=== PATIENT | male | born 1995 | race Two or more races ===

== ENCOUNTER 2021-03-03 12:46 | Emergency (ER) | payer SELFPAY ==
[~2021-03-03] VITALS: Ht 175.3 cm; Wt 81.0 kg
[2021-03-03] MEDS ORDERED: IV NORMAL SALINE 1000ML BAG 1,000 ML IV ONE (15:45)
[2021-03-03] MEDS ORDERED: fentaNYL PF VIAL 100 MCG/2 ML VIAL IVP ONE (15:45)
[2021-03-03 15:56] LABS: BILIRUBIN,URINE NEGATIVE (NEG); CLARITY,URINE TURBID; COLOR,URINE YELLOW; NITRITE,URINE NEGATIVE (NEG); PROTEIN,URINE NEGATIVE (NEG-TRACE); UROBILINOGEN,URINE 0.2 mg/dL (0.2 mg/dL)
[2021-03-03 16:05] LABS: AMORPHOUS SEDIMENT,UR PRESENT /HPF; BACTERIA,URINE 0 /HPF (0-FEW); RBC,URINE 0 /HPF (0-2); WBC,URINE 0 /HPF (0-4)
[2021-03-03 16:10] LABS: BASO % 1 % (0-3); EOS # 0.2 x10^3/uL (0.0-0.7); EOS % 3 % (0-3); HEMOGLOBIN 15.7 g/dL (13.0-17.5); LYMPH # 3.1 x10^3/uL (1.0-4.8); LYMPH % 41 % (24-48); MEAN CORPUSCULAR HEMOGLOBIN 32 pg (25-35); MEAN CORPUSCULAR HGB CONC 35 g/dL (31-37); MEAN CORPUSCULAR VOLUME 91 fL (79-100); MONO # 0.6 x10^3/uL (0.0-1.1); MONO % 8 % (0-9); NEUT # 3.7 x10^3/uL (1.8-7.7); NEUT % 48 % (31-73); PLATELET COUNT 281 x10^3/uL (140-400); RED BLOOD COUNT 4.95 x10^6/uL (4.30-5.70); RED CELL DISTRIBUTION WIDTH 12.8 % (11.5-14.5); WHITE BLOOD COUNT 7.6 x10^3/uL (4.0-11.0)
[2021-03-03] MEDS ORDERED: fentaNYL PF VIAL 100 MCG/2 ML VIAL ONE (16:10)
[2021-03-03] MEDS ORDERED: IOHEXOL 300 MG/ML 100ML VIAL. IV ONE (16:15)
[2021-03-03] MEDS ORDERED: CONTRAST GIVEN. MC PRN (16:15)
[2021-03-03 16:18] LABS: CALCIUM 8.9 mg/dL (8.5-10.1); CREATININE 0.9 mg/dL (0.7-1.3); GFR 103.7; POTASSIUM 3.7 mmol/L (3.5-5.1)
--- NOTE | 2021-03-03 16:25 | RAD ---
Single view pelvis two-view right hip dated 03/03/2021. No comparison available. Clinical data indication: Pain after fall. FINDINGS: AP view pelvis and single view bilateral hip show normal bony alignment. No displaced fracture. No pe riostitis or bone destruction. Pelvic ring is intact. IMPRESSION: No acute findings. Electronically signed by: Diego Starr MD (03/03/2021 4:23 PM) [facility]
[2021-03-03 16:27] VITALS: BP 128/76
[2021-03-03 16:28] LABS: ALBUMIN/GLOBULIN RATIO 1.3 (1.0-1.7); TOTAL BILIRUBIN 0.2 mg/dL (0.2-1.0); TOTAL PROTEIN 7.2 g/dL (6.4-8.2)
--- NOTE | 2021-03-03 17:04 | RAD ---
EXAMINATION: CT head and cervical spine without IV contrast. CT chest, abdomen and pelvis with IV co ntrast. CT thoracic and lumbar spine obtained from reconstruction images from the CT chest. INDICATION:26 years, Male, fall 15th off ladder. COMPARISON: None TECHNIQUE: Axial CT images of the head and cervical spine were obtained without IV contrast. Axial CT images of the chest, abdomen and pelvis obtained with IV contrast. Coronal and sagittal reformats ob tained for the head, cervical spine, chest, abdomen and pelvis. CT thoracic and lumbar spine obtained from reconstruction images of the CT chest. Exposure: One or more of the following individualized dose reduction techniques were utilized for thi s examination: 1. Automated exposure control 2. Adjustment of the mA and/or kV according to patient size 3. Use of iterative reconstruction technique. FINDINGS: CT HEAD: Asymmetric prominent right lateral ventricle. Neither mass, midline shift, intracranial hemorrhage, a cute/subacute ischemic changes, nor extraaxial fluid collections are seen. The brain parenchyma is no rmal in appearance. The paranasal sinuses, mastoid air cells, and middle ears are clear. The orbital contents appear within normal limits. CT CERVICAL SPINE: Anatomic alignment of the cervical spine is maintained. Neither fracture, subluxation, nor traumatic spondylolisthesis is seen. The vertebral body heights and intervertebral disk spaces are preserved. T here is no evidence of a large intraspinal hematoma. The prevertebral and paravertebral soft tissues are within normal limits. CT CHEST: LUNGS/PLEURA: Central airways are patent. No focal consolidation, pleural effusion or pneumothorax. T here is a 2 mm pleural-based groundglass nodule in the left lower lobe (series 2 image 50), may relat e to infectious/inflammatory process. MEDIASTINUM: No pathologic mediastinal or hilar adenopathy. Calcified lymph nodes in the mediastinum. The thoracic aorta and pulmonary arteries are normal in caliber. The heart is normal in size. No per icardial effusion. No detectable calcified coronary atherosclerosis. The visualized thyroid and the e sophagus are unremarkable. Soft tissue attenuation along the anterior mediastinum, likely representin g residual thymus. AXILLA/SOFT TISSUE: No supraclavicular or axillary adenopathy. Regional soft tissues are within nieves l limits. CT ABDOMEN/PELVIS: Liver, spleen, pancreas, and biliary ducts are unremarkable. Contracted gallbladder which limits eval uation. No adrenal nodule. Horseshoe kidney with no hydronephrosis or nephrolithiasis. No bowel obstr uction. Normal appendix. Patent abdominal aorta, mesenteric arteries and portal vein. No pneumoperito neum. Trace amount of pelvic free fluid, nonspecific. No lymphadenopathy. Unremarkable urinary bladde r and prostate. MUSCULOSKELETAL STRUCTURES INCLUDING THORACIC AND LUMBAR SPINE: No acute osseous process. IMPRESSION: 1. No acute intracranial abnormality. 2. No acute osseous abnormality of the cervical, thoracic or lumbar spine. 3. No acute traumatic injury to the chest, abdomen or pelvis. 4. Horseshoe kidney. Electronically signed by: Jessi Ceballos MD (03/03/2021 5:01 PM) [facility]
[2021-03-03] MEDS ORDERED: HYDR-2761 PO (17:16)
--- NOTE | 2021-03-03 17:18 | PHYS DOC ---
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 He is complaining of mid and lower back pain with left rib pain and left hip pain. He states he also has some abdominal pain and some nausea. Rates his pain a 7 out of 10. He took Tylenol yesterday but noth ing today. Denies any past medical history. Denies hitting his head, LOC, chest pain, shortness of air, numbness or tingling, focal weakness, vomiting, dizziness, headache, vision change. (LILIANA HUSTON APRN) Review of Systems: Review of Systems: Constitutional: Denies fever or chills. [] Eyes: Denies change in visual acuity. [] HENT: Denies nasal congestion or sore throat. [] Respiratory: Denies cough or shortness of breath. [] Cardiovascular: Denies chest pain or edema. [] GI: +abdominal pain, +nausea, denies vomiting, bloody stools or diarrhea. [] : Denies dysuria. [] Musculoskeletal: + Mid and lower back pain or +left hip joint pain. + Left rib pain [] Integument: Denies rash. [] Neurologic: Denies headache, focal weakness or sensory changes. + Dizziness right after the incident [] Endocrine: Denies polyuria or polydipsia. [] Lymphatic: Denies swollen glands. [] Psychiatric: Denies depression or anxiety. [] (LILIANA HUSTON APRN) Heart Score: C/O Chest Pain: No Risk Factors: Risk Factors: DM, Current or recent (<one month) smoker, HTN, HLP, family history of CAD, obesity. Risk Scores: Score 0 - 3: 2.5% MACE over next 6 weeks - Discharge Home Score 4 - 6: 20.3% MACE over next 6 weeks - Admit for Clinical Observation Score 7 - 10: 72.7% MACE over next 6 weeks - Early Invasive Strategies (LILIANA HUSTON APRN) Current Medications: Current Medications Medications (Trade) Dose Ordered Sig/[facility] Start Time Stop Time Status Last Admin Dose Admin Fentanyl Citrate (Fentanyl 2ml Vial) 100 mcg STK-MED ONCE 03/03/21 16:10 03/03/21 16:11 DC Info (CONTRAST GIVEN -- Rx MONITORING) 1 each PRN DAILY PRN 03/03/21 16:15 03/05/21 16:14 Iohexol (Omnipaque 300 Mg/ml) 75 ml 1X ONCE 03/03/21 16:15 03/03/21 16:16 DC 03/03/21 16:39 75 ML Sodium Chloride 1,000 ml @ 1,000 mls/hr 1X ONCE 03/03/21 15:45 03/03/21 16:44 DC 03/03/21 16:36 1,000 MLS/HR (LILIANA HUSTON APRN) Allergies: Allergies: Allergies Coded Allergies Type Severity Reaction Last Updated Verified No Known Drug Allergies 03/03/21 No (LILIANA HUSTON APRN) Physical Exam: PE: Constitutional: Well developed, well nourished, no acute distress, non-toxic appearance. [] HENT: Normocephalic, atraumatic, bilateral external ears normal, oropharynx moist, no oral exudates, nose normal. [] Eyes: PERRLA, EOMI, conjunctiva normal, no discharge. [] Neck: Normal range of motion, no tenderness, supple, no stridor. [] Cardiovascular:Heart rate regular rhythm, no murmur [] Lungs & Thorax: Bilateral breath sounds clear to auscultation. Left rib tenderness [] Abdomen: Bowel sounds normal, soft, abdominal tenderness, no masses, no pulsatile masses. [] Skin: Warm, dry, no erythema, no rash. [] Back: Focal bony spinal to thoracic and lumbar tenderness, no CVA tenderness. [] Extremities: No tenderness, no cyanosis, no clubbing, ROM intact, no edema. [] Neurologic: Alert and oriented X 3, normal motor function, normal sensory function, no focal deficits noted. [] Psychologic: Affect normal, judgement normal, mood normal. [] (LILIANA HUSTON APRN) Current Patient Data: Labs: Laboratory Tests Test 03/03/21 15:48 03/03/21 16:03 Urine Collection Type Void Urine Color Yellow Urine Clarity Turbid Urine pH 8.0 (<5.0-8.0) Urine Specific [place] 1.020 (1.000-1.030) Urine Protein Negative mg/dL (NEG-TRACE) Urine Glucose (UA) Negative mg/dL (NEG) Urine Ketones (Stick) Negative mg/dL (NEG) Urine Blood Negative (NEG) Urine Nitrite Negative (NEG) Urine Bilirubin Negative (NEG) Urine Urobilinogen Dipstick 0.2 mg/dL (0.2 mg/dL) Urine Leukocyte Esterase Negative (NEG) Urine RBC 0 /HPF (0-2) Urine WBC 0 /HPF (0-4) Urine Squamous Epithelial Cells Occ /LPF Urine Amorphous Sediment Present /HPF Urine Bacteria 0 /HPF (0-FEW) Urine Mucus Slight /LPF White Blood Count 7.6 x10^3/uL (4.0-11.0) Red Blood Count 4.95 x10^6/uL (4.30-5.70) Hemoglobin 15.7 g/dL (13.0-17.5) Hematocrit 45.0 % (39.0-53.0) Mean Corpuscular Volume 91 fL (79-100) Mean Corpuscular Hemoglobin 32 pg (25-35) Mean Corpuscular Hemoglobin Concent 35 g/dL (31-37) Red Cell Distribution Width 12.8 % (11.5-14.5) Platelet Count 281 x10^3/uL (140-400) Neutrophils (%) (Auto) 48 % (31-73) Lymphocytes (%) (Auto) 41 % (24-48) Monocytes (%) (Auto) 8 % (0-9) Eosinophils (%) (Auto) 3 % (0-3) Basophils (%) (Auto) 1 % (0-3) Neutrophils # (Auto) 3.7 x10^3/uL (1.8-7.7) Lymphocytes # (Auto) 3.1 x10^3/uL (1.0-4.8) Monocytes # (Auto) 0.6 x10^3/uL (0.0-1.1) Eosinophils # (Auto) 0.2 x10^3/uL (0.0-0.7) Basophils # (Auto) 0.0 x10^3/uL (0.0-0.2) Sodium Level 141 mmol/L (136-145) Potassium Level 3.7 mmol/L (3.5-5.1) Chloride Level 105 mmol/L (98-107) Carbon Dioxide Level 29 mmol/L (21-32) Anion Gap 7 (6-14) Blood Urea Nitrogen 12 mg/dL (8-26) Creatinine 0.9 mg/dL (0.7-1.3) Estimated GFR (Cockcroft-Gault) 103.7 BUN/Creatinine Ratio 13 (6-20) Glucose Level 83 mg/dL (70-99) Calcium Level 8.9 mg/dL (8.5-10.1) Total Bilirubin 0.2 mg/dL (0.2-1.0) Aspartate Amino Transferase (AST) 19 U/L (15-37) Alanine Aminotransferase (ALT) 28 U/L (16-63) Alkaline Phosphatase 66 U/L (46-116) Troponin I Quantitative < 0.017 ng/mL (0.000-0.055) Total Protein 7.2 g/dL (6.4-8.2) Albumin 4.0 g/dL (3.4-5.0) Albumin/Globulin Ratio 1.3 (1.0-1.7) Laboratory Tests 03/03/21 16:03 Laboratory Tests 03/03/21 16:03 Vital Signs: Vital Signs Date Time Temp Pulse Resp B/P (MAP) Pulse Ox O2 Delivery O2 Flow Rate FiO2 03/03/21 16:35 16 100 Room Air 03/03/21 15:07 98.0 55 130/66 98.0 (LILIANA HUSTON APRN) EKG: EK and read by Dr. Avelar as J-point in V2 and hyperacute T wave but no STEMI. [] (LILIANA HUSTON APRN) Radiology/Procedures: Radiology/Procedures: [] Impression: [facility] [address] [place] [address] IMAGING REPORT Signed PATIENT: ERNESTO PRECIADOOUNT: [id number] : 1995 LOCATION: ER AGE: 26 SEX: M EXAM STATUS: REG ER ORD. PHYSICIAN: LILIANA HUSTON APRN REASON: fall 15ft off ladder PROCEDURE: CT THORACIC SPINE RECONSTRUCT EXAMINATION: CT head and cervical spine without IV contrast. CT chest, abdomen and pelvis with IV contrast. CT thoracic and lumbar spine obtained from reconstruction images from the CT chest. INDICATION:26 years, Male, fall 15th off ladder. COMPARISON: None TECHNIQUE: Axial CT images of the head and cervical spine were obtained without IV contrast. Axial CT images of the chest, abdomen and pelvis obtained with IV contrast. Coronal and sagittal reformats obtained for the head, cervical spine, chest, abdomen and pelvis. CT thoracic and lumbar spine obtained from reconstruction images of the CT chest. Exposure: One or more of the following individualized dose reduction techniques were utilized for this examination: 1. Automated exposure control 2. Adjustment of the mA and/or kV according to patient size 3. Use of iterative reconstruction technique. FINDINGS: CT HEAD: Asymmetric prominent right lateral ventricle. Neither mass, midline shift, intracranial hemorrhage, acute/subacute ischemic changes, nor extraaxial fluid collections are seen. The brain parenchyma is normal in appearance. The paranasal sinuses, mastoid air cells, and middle ears are clear. The orbital contents appear within normal limits. CT CERVICAL SPINE: Anatomic alignment of the cervical spine is maintained. Neither fracture, subluxation, nor traumatic spondylolisthesis is seen. The vertebral body heights and intervertebral disk spaces are preserved. There is no evidence of a large intraspinal hematoma. The prevertebral and paravertebral soft tissues are within normal limits. CT CHEST: LUNGS/PLEURA: Central airways are patent. No focal consolidation, pleural effusion or pneumothorax. There is a 2 mm pleural-based groundglass nodule in the left lower lobe (series 2 image 50), may relate to infectious/inflammatory process. MEDIASTINUM: No pathologic mediastinal or hilar adenopathy. Calcified lymph nodes in the mediastinum. The thoracic aorta and pulmonary arteries are normal in caliber. The heart is normal in size. No pericardial effusion. No detectable calcified coronary atherosclerosis. The visualized thyroid and the esophagus are unremarkable. Soft tissue attenuation along the anterior mediastinum, likely representing residual thymus. AXILLA/SOFT TISSUE: No supraclavicular or axillary adenopathy. Regional soft tissues are within normal limits. CT ABDOMEN/PELVIS: Liver, spleen, pancreas, and biliary ducts are unremarkable. Contracted gallbladder which limits evaluation. No adrenal nodule. Horseshoe kidney with no hydronephrosis or nephrolithiasis. No bowel obstruction. Normal appendix. Patent abdominal aorta, mesenteric arteries and portal vein. No pneumoperitoneum. Trace amount of pelvic free fluid, nonspecific. No lymphadenopathy. Unremarkable urinary bladder and prostate. MUSCULOSKELETAL STRUCTURES INCLUDING THORACIC AND LUMBAR SPINE: No acute osseous process. IMPRESSION: 1. No acute intracranial abnormality. 2. No acute osseous abnormality of the cervical, thoracic or lumbar spine. 3. No acute traumatic injury to the chest, abdomen or pelvis. 4. Horseshoe kidney. Electronically signed by: Shirin Ceballos MD (03/03/2021 5:01 PM) [facility] DICTATED and SIGNED BY: SHIRIN CEBALLOS MD DATE: 03/03/21 [id number] [facility] [address] [place], [place] [id number] IMAGING REPORT Signed PATIENT: ERNESTO PRECIADOOUNT: [id number] : 1995 LOCATION: ER AGE: 26 SEX: M EXAM STATUS: REG ER ORD. PHYSICIAN: LILIANA HUSTON APRN REASON: FALL OFF LADDER FOR 15FT, LEFT HIP PAIN PROCEDURE: HIP BILATERAL WITH PELVIS Single view pelvis two-view right hip dated 03/03/2021. No comparison available. Clinical data indication: Pain after fall. FINDINGS: AP view pelvis and single view bilateral hip show normal bony alignment. No d isplaced fracture. No periostitis or bone destruction. Pelvic ring is intact. IMPRESSION: No acute findings. Electronically signed by: Diego Starr MD (03/03/2021 4:23 PM) [facility] DI[facility]ATED and SIGNED BY: DIEGO STARR MD DATE: 03/03/21 [id number] (LILIANA HUSTON APRN) Course & Med Decision Making: Course & Med Decision Making Pertinent Labs and Imaging studies reviewed. (See chart for details) See HPI. Alert and oriented 4. Ambulatory steady gait. Skin pink warm and dry. Speaks in full clear sentences. Sensations intact. Full range of motion and strength are intact in all extremities. No joint laxity or deformity. No abrasions or lacerations. No bruising. Lungs are clear to all station all lobes. Full range of motion of his neck. No trauma to his pain from school. He is not dizzy at this time. PERRLA. Abdomen soft and slightly tender with palpation generally. Tenderness over left ribs but no crepitus or subcutaneous emphysema. All CT scans and x-rays show no acute findings. Urinalysis did not show any current bladder infection. Patient is stable and in no distress. [] (LILIANA HUSTON APRN) Dragon Disclaimer: Dragon Disclaimer: This electronic medical record was generated, in whole or in part, using a voice recognition dictation system. (LILIANA HUSTON APRN) Departure Departure Impression: Primary Impression: Back pain Qualified Codes: M54.9 - Dorsalgia, unspecified Additional Impressions: Fall Qualified Codes: W19.XXXA - Unspecified fall, initial encounter Dizziness Disposition: HOME / SELF CARE / HOMELESS Condition: STABLE Referrals: NO PCP (PCP) Patient Instructions: Back Pain, Adult, Contusion, Fall Prevention and Home Safety Additional Instructions: Follow-up with primary care provider. Take medication as prescribed and with food. Drink plenty of fluid. If you begin having severe shortness of breath, chest pain, dizziness or severe headache any return emergency room. Scripts Hydrocodone Bit/Acetaminophen (HYDROCODONE-APAP 5-325 ) 1 Tab Tablet 1 TAB PO PRN Q6HRS PRN for PAIN, #10 TAB 0 Refills Prov: LILIANA HUSTON APRN 03/03/21 Attending Signature Attending Signature I have reviewed the PA/FUR FEEDER's note and plan of care. I was available for consultation as needed during the patient's visit in the emergency department. I agree with the clinical impression, plan, and disposition. (DIEGO AVELAR DO) LILIANA HUSTON APRN Mar 03, 2021 17:18 DIEGO AVELAR DO Mar 04, 2021 07:12
--- NOTE | 2021-03-03 18:24 | EKG ---
[facility] [address] [place] [address] Test Date: 2021-03-03 Test Time: 16:30:42 Pat Name: ASHA PRECIADO Department: Room: Gender: M Asbestos Worker: : 1995 Requested By: LILIANA HUSTON Order Number: [id number] Reading MD: Measurements Intervals [place] Rate: 48 P: 65 ME: 122 QRS: 77 QRSD: 90 T: 26 QT: 432 QTc: 389 Interpretive Statements No previous ECG available for comparison
--- NOTE | 2021-03-04 16:34 | NUR ---
IP: Informed pt of negative covid test. Pt verbalized understanding.
== END 2021-03-03 17:41 | disposition home or self-care (01) ==
LOC: ER 12:46
DX: M54.5 Low back pain (principal); Z20.822 Contact with and (suspected) exposure to COVID-19; G89.11 Acute pain due to trauma; R07.81 Pleurodynia; M25.552 Pain in left hip; R10.9 Unspecified abdominal pain; R11.0 Nausea; W11.XXXA Fall on and from ladder, initial encounter; Y93.89 Activity, other specified; Y92.89 Other specified places as the place of occurrence of the external cause; Y99.8 Other external cause status
CPT/HCPCS: 36415; 70450; 71260; 72125; 73521; 74177; 80053; 81001; 84484; 85025; 87426; 93005; 96361; 96374; 99285; J3010; J7030; Q9967; U0003; U0005